=== PATIENT | female | born 1970 | race Caucasian/White ===

== ENCOUNTER 2016-12-19 12:49 | Emergency (ER) | payer OTHER ==
[2016-12-19 13:49] LABS: RED BLOOD COUNT 5.4 M/UL (4.00-5.10)
[2016-12-19 14:07] LABS: BUN/CREATININE RATIO 13 (0-10)
[2016-12-30] MEDS ORDERED: KETOROLAC TROME10 MG PO (11:31)
[2016-12-30] MEDS ORDERED: PROTONIX 40 MG40 M1 PO (11:32)
[2016-12-30] MEDS ORDERED: PERCOCET 5-3251 EACH PO (11:32)
[2016-12-30] MEDS ORDERED: ZOFRAN4 MG PO (11:33)
[2016-12-30] MEDS ORDERED: HYDROCODON-ACE1 EAC2 PO (15:12)
[2016-12-30] MEDS ORDERED: COLACE 100MG C100 MG PO (15:13)
== END 2016-12-19 18:23 | disposition home or self-care (01) ==
LOC: ER1 12:49
PROVIDERS: Physician Assistant Medical
DX: R10.11 Right upper quadrant pain (principal); R11.0 Nausea; Z79.899 Other long term (current) drug therapy
CPT/HCPCS: 36415; 80053; 81001; 82150; 83605; 83690; 84484; 85025; 93005; 96361; 96374; 99284; J2405; J7030; J7050; Q9962

== ENCOUNTER 2016-12-23 13:28 | Emergency (ER) | payer OTHER ==
[2016-12-23 14:34] LABS: HEMOGLOBIN 15.6 gm/dl (12.3-15.3); RED BLOOD COUNT 5.22 M/UL (4.00-5.10); WHITE BLOOD COUNT 11.2 K/UL (4.5-11.0)
[2016-12-23 15:59] LABS: BUN/CREATININE RATIO 9 (0-10)
[2016-12-30] MEDS ORDERED: KETOROLAC TROME10 MG PO (11:31)
[2016-12-30] MEDS ORDERED: PROTONIX 40 MG40 M1 PO (11:32)
[2016-12-30] MEDS ORDERED: PERCOCET 5-3251 EACH PO (11:32)
[2016-12-30] MEDS ORDERED: ZOFRAN4 MG PO (11:33)
[2016-12-30] MEDS ORDERED: HYDROCODON-ACE1 EAC2 PO (15:12)
[2016-12-30] MEDS ORDERED: COLACE 100MG C100 MG PO (15:13)
== END 2016-12-23 17:25 | disposition home or self-care (01) ==
LOC: ER1 13:28
PROVIDERS: Specialist/Technologist Athletic Trainer
DX: K80.50 Calculus of bile duct without cholangitis or cholecystitis without obstruction (principal); F17.200 Nicotine dependence, unspecified, uncomplicated; E66.01 Morbid (severe) obesity due to excess calories
CPT/HCPCS: 36415; 80053; 81001; 83605; 83690; 85025; 87086; 93005; 96361; 96374; 96375; 99284; C9113; J2270; J2405; J7030; J7050; Q9962

== ENCOUNTER → 2016-12-30 | Day surgery (SDC) | payer OTHER ==
[~2016-12-30] MED LIST: COLACE 100MG C100 MG PO; HYDROCODON-ACE1 EAC2 PO; KETOROLAC TROME10 MG PO; PERCOCET 5-3251 EACH PO; PROTONIX 40 MG40 M1 PO; ZOFRAN4 MG PO
== END | disposition home or self-care (01) ==
LOC: OR 10:33
PROVIDERS: Surgery
PROC: 0FT44ZZ Resection of Gallbladder, Percutaneous Endoscopic Approach (ICD-10-PCS; principal; 2016-12-30 12:00)
DX: K80.50 Calculus of bile duct without cholangitis or cholecystitis without obstruction (principal); F17.210 Nicotine dependence, cigarettes, uncomplicated; Z79.899 Other long term (current) drug therapy; Z98.51 Tubal ligation status; Z87.19 Personal history of other diseases of the digestive system; Z80.0 Family history of malignant neoplasm of digestive organs
CPT/HCPCS: J0690; J1100; J1885; J2250; J2405; J2710; J3010; J7030; J7120